=== PATIENT | female | born 1985 | race Caucasian/White ===

== ENCOUNTER 2023-02-13 08:15 | Outpatient (AMB) | payer MEDICAID, SELFPAY ==
--- NOTE | 2023-02-13 08:18 | MHC.OFFVIS ---
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 Recently intimate. She felt a little often used an [id number] Monistat cream over the weekend. She denies any urinary symptoms or pelvic pain. PFSH Medical History Amputation of finger Surgical History (Updated 02/13/23 @ 08:30 by Karen Dee CNM) History of LAVH Family History (Updated 02/13/23 @ 08:20 by SHELLIE Angel) Paternal Grandmother Colon cancer Social History (Updated 02/13/23 @ 08:20 by SHELLIE Angel) Alcohol intake: current Alcohol intake frequency: a few times a week Patient Tobacco Use Status: Current everyday Tobacco user Cigarettes Per Day: 10 Sexual orientation: Straight/Heterosexual Gender identity: Female Female Reproductive History Menstrual Menopause type: surgical Total pregnancies: 2 Full term: 1 Number of Living Children: 1 Review of Systems Const All systems reviewed & are unremarkable except as noted in HPI and below Physical Exam Vital Signs: Last Vital Signs BP 114/80 02/13/23 08:21 BMI result Body Mass Index 20.7 Const General: cooperative, healthy appearing and no acute distress Orientation/consciousness: patient oriented x3 GI Inspection: Yes normal to inspection Palpation (GI): Soft to palpation and Other GI palpation findings present (Nontender) Rectal Exam - Female: visual inspection normal General: Yes bladder normal to palpation External Female Exam: normal appearance of the urethra Speculum Exam - Vagina: normal appearance of the vagina, normal palpation and normal vaginal discharge (Large amount most likely Monistat) Speculum Exam - Cervix: normal appearance of the cervix and Cervix absent (Vaginal cuff no lesions or nodules) Bimanual exam- vagina & uterus: normal bimanual exam, normal palpation, bladder normal to palpation and uterus absent Bimanual Exam- Adnexa, other: normal adnexae Neuro General: patient oriented x3 Assessment & Plan Assessment & Plan (1) Vaginal discharge: Code(s): N89.8 - Other specified noninflammatory disorders of vagina (2) Possible exposure to STD: Code(s): Z20.2 - Contact with and (suspected) exposure to infections with a predominantly sexual mode of transmission Plan Discussed: STD blood work today. Await results of cultures and lab work. All of her questions and concerns were addressed to the best of my ability and shared decision making. She is agreeable to the plan of care. Orders: Orders Hepatitis B Core Antibody Today Z20.2 - Contact with and (suspected) exposure to infections with a predominantly sexual mode of transmission Syphilis Screen Today Z20.2 - Contact with and (suspected) exposure to infections with a predominantly sexual mode of transmission CT NG by PCR Today Z20.2 - Contact with and (suspected) exposure to infections with a predominantly sexual mode of transmission Bacterial Vaginosis Panel Today Z20.2 - Contact with and (suspected) exposure to infections with a predominantly sexual mode of transmission HIV Ab/Ag Today Z20.2 - Contact with and (suspected) exposure to infections with a predominantly sexual mode of transmission Hepatitis C Antibody Today Z20.2 - Contact with and (suspected) exposure to infections with a predominantly sexual mode of transmission Coding Level of Care Code New Pt Level 3 (93214) Diagnoses Vaginal discharge N89.8 Possible exposure to STD Z20.2
[2023-02-13 08:21] VITALS: BP 114/80; BMI 20.7
== END 2023-02-13 10:18 | disposition home or self-care (01) ==
PROVIDERS: PCP Family Medicine; Visit Provider Advanced Practice Midwife
DX: N89.8 Other specified noninflammatory disorders of vagina (principal); Z20.2 Contact with and (suspected) exposure to infections with a predominantly sexual mode of transmission
CPT/HCPCS: 99203

== ENCOUNTER 2023-02-13 08:15 | Outpatient (REF) | payer MEDICAID, SELFPAY ==
[2023-02-13 11:22] LABS: CT PCR NOT DETECTED (Not Detect.); NG PCR NOT DETECTED (Not Detect.)
[2023-02-14 15:30] LABS: BV Int Neg Control Negative (Negative); BV Int Pos Control Positive (Positive)
== END 2023-02-13 08:16 | disposition home or self-care (01) ==
LOC: HO.LNP 08:15
PROVIDERS: PCP Family Medicine; Visit Provider Advanced Practice Midwife
DX: N89.8 Other specified noninflammatory disorders of vagina (principal); Z20.2 Contact with and (suspected) exposure to infections with a predominantly sexual mode of transmission
CPT/HCPCS: 0353U; 36415; 86704; 86780; 86803; 87389; 87480; 87510; 87660; 99212

== ENCOUNTER 2023-02-13 08:35 | Outpatient (REF) | payer MEDICAID, SELFPAY ==
[2023-02-13 14:29] LABS: Syphilis Screen Nonreactive (Nonreactive)
[2023-02-14 04:57] LABS: HBc Num1 0.08 S/CO (0.00-0.79); HIV AB/AG Nonreactive (Nonreactive); HIV Num 1 0.05 S/CO (0.00-0.99); Hepatitis B Core Antibody Nonreactive (Nonreactive); ~HepC Num1 0.09 S/CO (0.00-0.79); ~Hepatitis C Antibody Nonreactive (Nonreactive)
== END 2023-02-13 08:36 | disposition home or self-care (01) ==
LOC: HO.LAB 08:35
PROVIDERS: PCP Family Medicine; Visit Provider Advanced Practice Midwife
DX: Z20.2 Contact with and (suspected) exposure to infections with a predominantly sexual mode of transmission (principal)
CPT/HCPCS: 36415; 86704; 86780; 86803; 87389

== ENCOUNTER 2023-03-22 09:02 | Emergency (ER) | payer OTHER, SELFPAY ==
--- NOTE | ~2023-03-22 | XR_ITS ---
EXAMINATION: XR HAND, RIGHT CLINICAL INFORMATION: Right middle finger injury COMPARISON: None available. TECHNIQUE: PA, lateral, and oblique views of the right hand. FINDINGS: There is absence of the index finger and the distal aspect of the second metacarpal. The remainder the bones are intact. No fracture. Joint spaces are within normal limits.. Alignment is normal. XR/XR hand RT 2V IMPRESSION: Absence of the index finger and the distal aspect of the second metacarpal. No acute bony abnormality.
[2023-03-22 09:03] VITALS: BP 123/88; PULSE 97; RESP 18; TEMP 36.9; O2SAT 99; BMI 21.3
--- NOTE | 2023-03-22 09:33 | ED_ITS ---
HPI - Extremity Problem General Chief complaint: Extremity Injury, Upper Stated complaint: R hand pain Time Seen by Provider: 03/22/23 09:18 Source: patient Mode of arrival: ambulatory Limitations: no limitations History of Present Illness HPI Narrative: 37-year-old female presents with complaints of right 3rd finger pain status post slamming her right hand on a chair when slamming her phone down/ Patient tells m e she was mad. This occurred last night. Patient reports swelling and ecchymosis to right middle finger. Intermittent tingling. No numbness. No previous injury to this hand. Related Data Home Medications Medication Instructions Recorded Confirmed dextroamphetamine-amphetamine 20 1 tab PO BID 02/13/23 mg tablet Previous Rx's Medication Instructions Recorded metronidazole 0.75 % (37.5 mg/5 1 appful vaginal BEDTIME 5 days 02/15/23 gram) vaginal gel #70 grams ketorolac 10 mg tablet 10 mg PO TID PRN pain 5 days #15 03/22/23 tabs Allergies Allergy/AdvReac Type Severity Reaction Status Date / Time No Known Allergies Allergy Verified 02/13/23 08:18 Review of Systems Review of Systems: Yes all other systems are reviewed and are negative [facility] Past Medical History Attestation statement: The following information was validated with the patient. Source: old records reviewed and nursing notes reviewed Medical History Amputation of finger Surgical History History of LAVH Family History Family History Paternal Grandmother Colon cancer Social History Social History Alcohol intake: current Alcohol intake frequency: a few times a week Patient Tobacco Use Status: Current everyday Tobacco user Cigarettes Per Day: 10 Advance Directives: No Sexual orientation: Straight/Heterosexual Gender identity: Female Physical Exam Vital Signs: Vital Signs: Last Vital Signs Temp 98.4 F 03/22/23 09:03 Pulse 97 03/22/23 09:03 Resp 18 03/22/23 09:03 BP 123/88 03/22/23 09:03 Pulse Ox 99 03/22/23 09:03 O2 Del Method Room Air 03/22/23 09:03 BMI result Body Mass Index 21.3 vss Appearance: Alert.? Oriented X3.? No acute distress.? Head: Normocephalic, atraumatic, no step-offs or deformities Eyes: Pupils equal, round and reactive to light.? ENT: Pharynx normal.? Neck: Normal inspection.? Neck supple.? CVS: Normal heart rate and rhythm.? Pulses normal.? Respiratory: No respiratory distress.? Breath sounds normal.? Abdomen: Soft and nontender.? Skin: Skin warm and dry.? Normal skin color.? Normal skin turgor.? Extremities: No lower extremity edema.? No calf ttp. 5/5 strength to bilateral upper and lower extremities + full range of motion to all digits. Right hand with only 4 fingers, her 3rd digit is noted to be edematous with ecchymosis, full range of motion however normal sensation distally capillary refill to bilateral upper extremity digits less than 2 seconds. No wrist drop. Back: No midline tenderness, no C-spine tenderness, full range of motion, no CVA tenderness bilaterally Neuro: Oriented X 3.? No motor deficit.? No sensory deficit. CN 2-12 intact Course Reevaluation(s) Reevaluation #1: X-ray of the hand with absence of index finger in the distal aspect of the 2nd metacarpal. No acute bony abnormality. This is likely finger contusion/sprain or strain. Patient will be given Toradol for pain control. Educated patient on diagnosis and treatment plan, answered all question, patient verbalizes understanding. At this time patient will be discharged home, advised to return with new or worsening symptoms. Educated on worrisome signs and symptoms and when to return. At this time I feel comfortable discharge home. Time: 10:44 Medical Decision Making Medical Decision Making MDM Narrative: 37-year-old female presents for evaluation of right hand 3rd digit pain status post slamming her finger yesterday when she was upset. Physical exam significant for + full range of motion to all digits. Right hand with only 4 fingers, her 3rd digit is noted to be edematous with ecchymosis, full range of motion however normal sensation distally capillary refill to bilateral upper extremity digits less than 2 seconds. No wrist drop. Likely sprain or strain. Will rule out fracture dislocation. No signs of threat to Gayle, neurovascular compromise, arterial or venous occlusion. Plan x-ray. Differential Diagnosis Differential Diagnoses: The differential diagnosis associated with the presentation includes Likely sprain or strain. Will rule out fracture dislocation. No signs of threat to Gayle, neurovascular compromise, arterial or venous occlusion. Admission/Observation Consideration of admission/observation: Escalation of care including admission/observation considered Unlikely Independent Interpretation I performed an independent interpretation of an: Plain X-Ray Radiology Impression Discussion of test interpretation with radiology: I have reviewed the radiologist's reading. Discharge Plan Discharge Clinical Impression: Contusion of finger, Finger pain Patient Disposition: Home, Self-Care Instructions: Contusion in Adults (ED), Arthralgia (ED) Additional Instructions: Take your medications as prescribed. If you were prescribed antibiotics today, it is important that you take your medication to their entirety, do not skip any doses, do not finish them early. Follow-up with your primary care provider this week. Return to the emergency department with new or worsening symptoms. Such as fevers, chills, chest pain, shortness of breath, nausea, vomiting, dizziness, headache, vision changes, lethargy In case of emergency call 911 There is absence of the index finger and the distal aspect of the second metacarpal. The remainder the bones are intact. No fracture. Joint spaces are within normal limits.. Alignment is normal. XR/XR hand RT 2V IMPRESSION: Absence of the index finger and the distal aspect of the second metacarpal. No acute bony abnormality. Toradol has been sent to your pharmacy, you tolerated this well in the depar tment. Please take this as prescribed do not take this with ibuprofen, or other NSAIDs, do not mix this with alcohol. Side effects of this medication including increased risk for bleeding and possible kidney injury. Prescriptions: New ketorolac 10 mg tablet 10 mg PO TID PRN (Reason: pain) 5 Days Qty: 15 0RF No Action metronidazole 0.75 % (37.5mg/5 gram) gel 1 appful vaginal BEDTIME 5 Days Qty: 70 0RF dextroamphetamine-amphetamine 20 mg tablet 1 tab PO BID Referrals: Ivan Jacome MD [Primary Care Provider] - 2 days Stand Alone Forms: Work/School Release
[2023-03-22] MEDS: Ketorolac Tromethamine 15 MG/ML VIAL IM (11:18)
== END 2023-03-22 11:22 | disposition home or self-care (01) ==
PROVIDERS: Emergency Provider Emergency Medicine; PCP Family Medicine
DX: S60.031A Contusion of right middle finger without damage to nail, initial encounter (principal); F17.200 Nicotine dependence, unspecified, uncomplicated; Y29.XXXA Contact with blunt object, undetermined intent, initial encounter; Y93.9 Activity, unspecified; Y92.9 Unspecified place or not applicable; Y99.8 Other external cause status
CPT/HCPCS: 73120; 96372; 99283; 99284; J1885